=== PATIENT | male | born 1950 | race Caucasian/White ===

== ENCOUNTER → 2017-07-27 08:25 | Outpatient (CLI) | payer MEDICARE | END | disposition home or self-care (01) | LOC: D.RAD 06-22 09:00 → D.RT 06-22 09:00 → D.RAD 06-22 10:00 → D.RT 07-08 11:00 → D.RAD 07-08 12:00 → D.RT 08:25 | DX: J44.9 Chronic obstructive pulmonary disease, unspecified (principal) ==